=== PATIENT | male | born 1950 | race Caucasian/White ===

== ENCOUNTER 2023-06-22 22:40 | Inpatient (IN) | payer MEDICARE ==
[~2023-06-22] VITALS: Ht 195.6 cm; Wt 114.0 kg
[2023-06-22] MEDS ORDERED: ondansetron/PF 4mg/2ml inj IV ONE (23:15)
[2023-06-22] MEDS ORDERED: HYDROmorphone 1 mg/ml syringe IV ONE (23:15)
[2023-06-22 23:33] LABS: BASOPHILS # (AUTO) 0.1 X10'3 (0-0.2); BASOPHILS % (AUTO) 0.6 % (0-1); EOSINOPHILS # (AUTO) 0.1 X10'3 (0-0.9); HEMATOCRIT 38.3 % (42.0-52.0); HEMOGLOBIN 12.9 g/dl (14.0-17.9); LYMPHOCYTES # (AUTO) 1.4 X10'3 (1.1-4.8); LYMPHOCYTES % (AUTO) 11.2 % (21-51); MEAN CORPUSCULAR HGB CONC 33.7 g/dL (33.0-36.5); MEAN CORPUSCULAR VOLUME 91.9 FL (78-98); MEAN PLATELET VOLUME 7.2 FL (7.4-10.4); MONOCYTES # (AUTO) 1.5 X10'3 (0-0.9); MONOCYTES % (AUTO) 12.3 % (2-12); NEUTROPHILS # (AUTO) 9.1 X10'3 (1.8-7.7); NEUTROPHILS % (AUTO) 74.9 % (42-75); PLATELET COUNT 279 X10'3 (140-440); RED BLOOD COUNT 4.16 X10'6 (4.70-6.10); RED CELL DISTRIBUTION WIDTH 13.5 % (11.5-14.5); WHITE BLOOD COUNT 12.2 X10'3 (4.5-11.0)
[2023-06-22 23:46] LABS: APTT 30 SECONDS (22-32); PROTHROMBIN TIME 10.9 SECONDS (9.0-12.0)
[2023-06-22 23:47] LABS: GLUCOSE 97 MG/DL (70-104); SODIUM 131 MMOL/L (135-145)
[2023-06-22 23:48] LABS: ALANINE AMINOTRANSFERASE 29 U/L (12-78); ALBUMIN 3.4 G/DL (3.4-5.0); ALBUMIN/GLOBULIN RATIO 0.9 (1.1-1.5); ALKALINE PHOSPHATASE 79 IU/L (46-116); ANION GAP 10 (8-16); ASPARTATE AMINO TRANSFERASE 26 U/L (10-37); BILIRUBIN,TOTAL 1.1 MG/DL (0.1-1.0); BLOOD UREA NITROGEN 16 MG/DL (7-18); BUN/CREATININE RATIO 23.9 (10.0-20.0); CHLORIDE 98 MMOL/L (99-107); CREATININE 0.67 MG/DL (0.60-1.10); TOTAL CARBON DIOXIDE 22.8 MMOL/L (24-32); TOTAL PROTEIN 7.2 G/DL (6.4-8.2); eCRCL 122 ML/MIN; eGFR > 90 ML/MIN
[2023-06-23] LABS: CALCIUM 9.3 MG/DL (8.5-10.1)
--- NOTE | 2023-06-23 00:20 | NUR ---
pt arrived wtih 20fr coude nelson with dark red blood with clots in tubing and bag. irrigated this nelson to clear clots and still not draining well, 3 clots removed. removed this nelson and placed 20fr 3-way nelson and hooked up to continuous bladder irrigation. after placement pt had 900mls output immediately of dark red with clots. dr chacon aware.
--- NOTE | 2023-06-23 00:23 | NUR ---
Kamala- [phone] and updated with plan of care.
[2023-06-23] MEDS ORDERED: NAPR220T67 PO (00:43)
[2023-06-23] MEDS ORDERED: CETI5TAB27 PO (00:43)
[2023-06-23] MEDS ORDERED: METO-411 PO (00:43)
[2023-06-23] MEDS ORDERED: LEVE10006 PO (00:43)
[2023-06-23] MEDS ORDERED: BENA10TA74 PO (00:43)
[2023-06-23] MEDS ORDERED: magnesium hydroxide 30ml (MOM) UD suspension PO PRN (01:30)
[2023-06-23] MEDS ORDERED: magnesium 4gm in 100ml NS 100 ML IV PRN (01:30)
[2023-06-23] MEDS ORDERED: potassium Cl 20 mEq SR tablet PO PRN ×2 (01:30)
[2023-06-23] MEDS ORDERED: cetirizine 10mg tablet PO PRN (01:30)
[2023-06-23] MEDS ORDERED: acetaminophen 325mg tablet PO PRN (01:30)
[2023-06-23] MEDS ORDERED: ondansetron/PF 4mg/2ml inj IV PRN (01:30)
[2023-06-23] MEDS ORDERED: potassium Cl 40MEQ/1/2NS 520ml 520 ML IV PRN (01:30)
[2023-06-23] MEDS ORDERED: magnesium Cl slow-release 64mg tablet PO PRN (01:30)
[2023-06-23] MEDS ORDERED: magnesium 2GM in 50ml NS 50 ML IV PRN (01:30)
[2023-06-23] MEDS ORDERED: mag hydrox/Alum hydrox/simeth 30ml oral suspension PO PRN (01:30)
[2023-06-23] MEDS: normal saline 1000ml 1,000 ML IV SCH ×2 (02:10→11:35)
[2023-06-23] MEDS ORDERED: lisinopril 10 MG tablet PO SCH (08:00)
[2023-06-23] MEDS ORDERED: K and/or MAG REPLACEMENT MC SCH (08:00)
[2023-06-23] MEDS ORDERED: docusate sod 100mg capsule PO SCH (08:00)
[2023-06-23] MEDS ORDERED: metoprolol succinate 25mg (24-HOUR) SR. Tablet PO SCH (08:00)
[2023-06-23] MEDS ORDERED: levetiracetam 250mg tablet PO SCH (08:00)
[2023-06-23 08:17] VITALS: BP 127/40; PULSE 90; RESP 12; TEMP 98.1; O2SAT 94
[2023-06-23 08:18] VITALS: RESP 15; O2SAT 94
[2023-06-23 10:00] VITALS: BP 151/89; PULSE 52; RESP 14; TEMP 97.7; O2SAT 99
[2023-06-23 11:35] VITALS: BP_SYST 151; PULSE 52
--- NOTE | 2023-06-23 11:41 | NUR ---
CALLED [facility] EARLY AM TO GET POC. PT. REQUESTING... STILL WAITING ON REPLY. CALLED SYSTEMS ANALYST UROLOGIST ALYX WHO STATED MD DREW ON HIS WAY TO ROUND ON PT.
--- NOTE | 2023-06-23 17:00 | NUR ---
DISCHARGE NOTE: Reviewed discharge paperwork, f/c care, infection control, s/sx infection, reasons to return/call MD, how to change night bag to day bag, f/c discontinuation, hand hygiene, medications and possible ASE of home meds, and follow up care with pt. He has already called MD Mcgrath's office to make a f/u appointment to have f/c D/C'd. Pt. will restart eliquis Monday - 06/24 if urine is not clotted and bloody. Pt. takes Aleve at home- talked about possible ASE of bleeding with NSAIDS but recommended talking to his PCP about that medication or just taking Tylenol if possible. Pt. was able to demonstrate great f/c care and was provided with extra supplies to take home. His was at bedside during discharge. PIV DC'd, cannula intact, pressure bandage applied.
== END 2023-06-23 17:00 | disposition home or self-care (01) | DRG 920 ==
LOC: ER 22:41 → ED HOLD 06-23 01:32 → ORTHO 4S 06-23 07:35
PROVIDERS: ADMIT Internal Medicine; ATTEND Family Medicine
DX: N99.820 Postprocedural hemorrhage of a genitourinary system organ or structure following a genitourinary system procedure (principal); E87.1 Hypo-osmolality and hyponatremia; R31.0 Gross hematuria; R33.8 Other retention of urine; N40.1 Benign prostatic hyperplasia with lower urinary tract symptoms; I48.91 Unspecified atrial fibrillation; M19.90 Unspecified osteoarthritis, unspecified site; Z87.891 Personal history of nicotine dependence; Y83.8 Other surgical procedures as the cause of abnormal reaction of the patient, or of later complication, without mention of misadventure at the time of the procedure; Y92.9 Unspecified place or not applicable
CPT/HCPCS: 36415; 80053; 83735; 85025; 85610; 85730; 86885; 86900; 86901; 99285; A4346; A4355; A4358; C1758; G0378; J1170; J2405; J7030

== ENCOUNTER 2023-06-30 11:11 | Day surgery (SDC) | payer MEDICARE ==
[2023-06-30] VITALS (8 sets, daily range): BP systolic 126–140; BP diastolic 70–93; PULSE 60–74; RESP 10–17; TEMP 97.8; O2SAT 98–100
[~2023-06-30] VITALS: Ht 195.6 cm; Wt 109.2 kg
[~2023-06-30 11:11] MED LIST: BENA10TA74 PO; CETI5TAB27 PO; LEVE10006 PO; METO-411 PO; NAPR220T67 PO
[2023-06-30] MEDS ORDERED: famotidine 20mg tablet PO ONE (11:40)
[2023-06-30] MEDS ORDERED: ringers solution, lacted 1,000 ML IV SCH ×2 (11:40→12:45)
[2023-06-30] MEDS ORDERED: fentaNYL/PF 50MCG/1 ML 2ML syringe ONE ×2 (12:41→13:37)
[2023-06-30] MEDS ORDERED: propofol inj 20 ML IV ONE (12:42)
[2023-06-30] MEDS ORDERED: HYDROmorphone/PF 0.2 MG/ML SYRINGE IV PRN ×2 (12:45)
[2023-06-30] MEDS ORDERED: morphine 2 MG/ML inj. syringe IV PRN (12:45)
[2023-06-30] MEDS ORDERED: ondansetron/PF 4mg/2ml inj IV PRN (12:45)
[2023-06-30 13:01] LABS: ISTAT ANION GAP 12 (8-12); ISTAT BUN 14 mg/dL (7-18); ISTAT CL 100 mmol/L (99-107); ISTAT CREATININE 0.7 mg/dL (0.8-1.3); ISTAT GLUCOSE 97 mg/dL (70-104); ISTAT HGB 12.9 g/dl (14.0-17.9); ISTAT Hct 38 %PCV (42-52); ISTAT IONIZED CALCIUM 1.24 mmol/L (1.03-1.32); ISTAT NA 134 mmol/L (135-145); ISTAT TOTAL CO2 22 mmol/L (24-32); ISTAT eGFR > 90 ML/MIN
[2023-06-30] MEDS ORDERED: dexamethasone sod phosphate 4mg/ml inj. ONE (13:04)
[2023-06-30] MEDS ORDERED: ondansetron/PF 4mg/2ml inj ONE (13:04)
[2023-06-30] MEDS ORDERED: sevoflurane 250ml liquid IH ONE (13:10)
[2023-06-30 13:31] LABS: BASOPHILS # (AUTO) 0.1 X10'3 (0-0.2); BASOPHILS % (AUTO) 0.5 % (0-1); EOSINOPHILS # (AUTO) 0.1 X10'3 (0-0.9); EOSINOPHILS % (AUTO) 1.1 % (0-6); LYMPHOCYTES # (AUTO) 1.5 X10'3 (1.1-4.8); LYMPHOCYTES % (AUTO) 14.4 % (21-51); MEAN CORPUSCULAR HEMOGLOBIN 30.3 PG (27.0-31.0); MEAN CORPUSCULAR HGB CONC 33.3 g/dL (33.0-36.5); MEAN CORPUSCULAR VOLUME 91.1 FL (78-98); MEAN PLATELET VOLUME 7.5 FL (7.4-10.4); MONOCYTES # (AUTO) 1.3 X10'3 (0-0.9); MONOCYTES % (AUTO) 12.7 % (2-12); NEUTROPHILS # (AUTO) 7.4 X10'3 (1.8-7.7); NEUTROPHILS % (AUTO) 71.3 % (42-75); PRE OP HEMATOCRIT 36.9 % (42.0-52.0); PRE OP HEMOGLOBIN 12.3 g/dL (14.0-17.9); PRE OP PLATELET COUNT 376 X10'3 (140-440); PRE OP WHITE BLOOD COUNT 10.4 10'3 (4.8-10.8); RED BLOOD COUNT 4.05 X10'6 (4.70-6.10); RED CELL DISTRIBUTION WIDTH 13.1 % (11.5-14.5)
[2023-06-30 13:44] LABS: ALBUMIN 3.3 G/DL (3.4-5.0); ALBUMIN/GLOBULIN RATIO 0.9 (1.1-1.5); ALKALINE PHOSPHATASE 78 IU/L (46-116); BLOOD UREA NITROGEN 14 MG/DL (7-18); BUN/CREATININE RATIO 17.1 (10.0-20.0); CALCIUM 9.5 MG/DL (8.5-10.1); CHLORIDE 98 MMOL/L (99-107); CREATININE 0.82 MG/DL (0.60-1.10); PRE OP ALT 28 U/L (30-65); PRE OP ANION GAP 12 (8-16); PRE OP AST 26 U/L (10-37); PRE OP BILIRUB, TOTAL 0.9 MG/DL (0.0-1.0); PRE OP GLUCOSE 96 MG/DL (70-104); PRE OP POTASSIUM 3.9 MMOL/L (3.4-5.1); PRE OP SODIUM 132 MMOL/L (135-145); TOTAL CARBON DIOXIDE 22.5 MMOL/L (24-32); TOTAL PROTEIN 7.1 G/DL (6.4-8.2); eCRCL 100 ML/MIN; eGFR > 90 ML/MIN
--- NOTE | 2023-06-30 14:03 | NUR ---
Received from OR via [facility] TO [facility], accompanied by Anesthesiologist HIWOT and report given by Anesthesiologist. PT PRESENTS ON RA WITH VSS. NO C/O PAIN, N/V. F/C DRAINING TO GRAVITY WITH STAT LOCK IN PLACE. MINIMAL BLEEDING FROM F/C INSERTION SITE. LR RUNNING THRU PIV.
[2023-06-30] MEDS ORDERED: APIX5TAB3 PO (14:48)
--- NOTE | 2023-06-30 15:23 | NUR ---
PT HAS MET D/C CRITERIA. IV D/C'D. VSS. I HAVE REVIEWED D/C INSTRUCTIONS WITH PATIENT AND HE HAS VERBALIZED UNDERSTANDING OF INSTRUCTIONS. ALL QUESTIONS, COMMENTS, AND CONCERNS WERE ANSWERED AT THIS TIME. F/C DRAINING TO GRAVITY AND STAT LOCK IN PLACE. EDUCATION PROVIDED ON F/C CARE, REMOVAL. GAVE F/C WIPES, SYRINGE AND PATIENT FEELS COMFORTABLE WITH F/C CARE AND REMOVAL. HE STATES HE HAS DONE IT BEFORE. PT WAS ABLE TO GET DRESSED WITH ASSISTANCE AND AMBULATED TO W/C WITH STANDBY ASSIST. PT WAS WHEELED OUT TO PRIVATE VEHICLE AND TRANSFERRED INTO VEHICLE WITHOUT INCIDENT. PATIENT D/C HOME WITH ALL BELONGINGS.
== END 2023-06-30 15:23 | disposition home or self-care (01) ==
LOC: PAS 11:11
PROVIDERS: ATTEND Urology
DX: R31.0 Gross hematuria (principal); N40.1 Benign prostatic hyperplasia with lower urinary tract symptoms; R33.8 Other retention of urine; I10 Essential (primary) hypertension; I48.91 Unspecified atrial fibrillation; J44.9 Chronic obstructive pulmonary disease, unspecified; G47.30 Sleep apnea, unspecified; G40.909 Epilepsy, unspecified, not intractable, without status epilepticus; Z79.01 Long term (current) use of anticoagulants; Z79.891 Long term (current) use of opiate analgesic; Z79.899 Other long term (current) drug therapy; Z98.890 Other specified postprocedural states
CPT/HCPCS: 36415; 52001; 80047; 80053; 85025; 93005; J0690; J1100; J2405; J2704; J3010; J7060; J7120; Z7506; Z7512; A4338; A4355; A4618; A5200